=== PATIENT | male | born 1950 | race Caucasian/White ===

== ENCOUNTER → 2025-02-17 08:50 | Outpatient (BNVA) | payer MEDICARE, SELFPAY | PROVIDERS: PCP Nurse Practitioner; Referring Provider Specialist; Visit Provider Specialist | DX: G20.A1 Parkinson's disease without dyskinesia, without mention of fluctuations (principal); G31.84 Mild cognitive impairment of uncertain or unknown etiology; G47.10 Hypersomnia, unspecified | CPT/HCPCS: 99205 ==